=== PATIENT | female | born 1985 | race Caucasian/White ===

== ENCOUNTER → 2017-09-02 | Emergency (ER) | payer MEDICAID ==
[~2017-09-02] VITALS: Ht 162.6 cm; Wt 68.0 kg
[~2017-09-02] MED LIST: HYDROCODONE/APAP 5MG-325MG TAB PO ONE
[2017-09-02 01:43] VITALS: BP 148/84
== END | disposition home or self-care (01) ==
LOC: FSED 01:02
DX: H92.03 Otalgia, bilateral (principal); R05 Cough; J30.2 Other seasonal allergic rhinitis
CPT/HCPCS: 99282

== ENCOUNTER 2017-10-02 19:42 | Emergency (ER) | payer MEDICAID ==
[~2017-10-02] VITALS: Ht 162.6 cm; Wt 68.0 kg
[2017-10-02] MEDS ORDERED: TRAMADOL HCL 50 MG TAB PO ONE (20:15)
[2017-10-02] MEDS ORDERED: HYDROCODONE/APAP 5MG-325MG TAB PO ONE (20:15)
--- NOTE | 2017-10-02 21:59 | Diagnostic Imaging Report ---
SACRUM COCCYX 2+ VEIWS - HOPD Comparison: None Clinical history: \S\[id number] \S\2029 Findings: Chronic fractures of the right superior and inferior pubic rami. No acute displaced fracture of the sacrum/coccyx visualized. Impression: No acute bony abnormality Signed by: Dr Tammy Rolle MD on 10/02/2017 9:55 PM
== END 2017-10-02 22:00 | disposition home or self-care (01) ==
LOC: FSED 19:42
DX: M54.5 Low back pain (principal); S39.012A Strain of muscle, fascia and tendon of lower back, initial encounter; S50.312A Abrasion of left elbow, initial encounter
CPT/HCPCS: 72220; 99283

== ENCOUNTER 2017-11-26 18:01 | Emergency (ER) | payer MEDICAID, OTHER ==
[~2017-11-26] VITALS: Ht 162.6 cm; Wt 68.0 kg
--- OUTSIDE RECORDS SUMMARY | 2017-11-26 18:03 | XMS REPORT ---
Author Author [facility] Address Unknown Phone Unavailable Care Team Providers Care Dba Manager Name Role Phone Daya LAMA Unavailable Unavailable Problems This patient has no known problems. Allergies, Adverse Reactions, Alerts This patient has no known allergies or adverse reactions. Medications This patient has no known medications. Results Test Description Test Time Test Comments Text Results Atomic Results Result Comments SACRUM COCCYX 2+ VEIWS - HOPD 2017-10-02 21:52:00 [place] [address] Patient Name: DANG RAHMAN MR #: [id number] : 1985 Age/Sex: 31/F Req #: [id number] Adm Physician: Ordered by: LEO LAMA MD Report #: [id number] Location: [facility] Room/Bed: Procedure: [id number] HOPD/SACRUM COCCYX 2+ VEIWS - HOPD Exam Date: 10/02/17 Exam Time: 2029 REPORT STATUS: Signed SACRUM COCCYX 2+ VEIWS - HOPD Comparison: None Clinical history: S [id number] Findings: Chronic fractures of the right superior and inferior pubic rami. No acute displaced fracture of the sacrum/coccyx visualized. Impression: No acute bony abnormality Signed by: Dr Isaac Rolle MD on 10/02/2017 9:55 PM Dictated By: ISAAC ROLLE MD 54 Transcribed By: ALIE on 10/02/172154 COPY TO: LEO LAMA MD
== END 2017-11-26 18:46 | disposition short-term general hospital (02) ==
LOC: FSED 18:01
DX: R30.0 Dysuria (principal)
CPT/HCPCS: 81003; 81025